=== PATIENT | female | born 1960 | race Caucasian/White ===

== ENCOUNTER 2017-11-04 05:45 | Inpatient (IN) | payer OTHER ==
[~2017-11-04] VITALS: Ht 172.7 cm; Wt 65.0 kg
[~2017-11-04 05:45] MED LIST: PERCT10 PO
[2017-11-04] MEDS ORDERED: RINGERS SOLUTION,LACTATED 1,000 ML IV ONE ×3 (06:00→06:01)
[2017-11-04] MEDS ORDERED: CeFAZolin 2 GM/DEXTROSE 50 ML IV ONE ×2 (06:00→06:02)
[2017-11-04] MEDS ORDERED: GELATIN SPONGE,ABSORBABLE 100 MM TP ONE (07:07)
[2017-11-04] MEDS ORDERED: PROPOFOL 1000 MG/ISO-OSM 100 ML IV ONE (07:07)
[2017-11-04] MEDS ORDERED: SODIUM CHLORIDE 0.9% 10 ML ONE (07:07)
[2017-11-04] MEDS ORDERED: BACITRACIN 50,000 UNITS/VIAL ONE (07:08)
[2017-11-04] MEDS ORDERED: THROMBIN, BOVINE 20000 UNITS/VIAL POWDER TP ONE (07:08)
[2017-11-04] MEDS ORDERED: HYDROmorphone 2 MG/ML SYRINGE IVP PRN ×2 (09:00)
[2017-11-04] MEDS ORDERED: FentaNYL CITRATE-PF 100 MCG/2 ML VIAL IVP PRN ×2 (09:00)
[2017-11-04] MEDS ORDERED: MIDAZOLAM HCL 2 MG/2 ML VIAL IVP PRN (09:00)
[2017-11-04] MEDS ORDERED: METOCLOPRAMIDE HCL 5 MG/ML 2 ML VIAL IVP PRN (09:00)
[2017-11-04] MEDS ORDERED: ONDANSETRON HCL 4 MG/2 ML VIAL IVP PRN (09:00)
[2017-11-04] MEDS ORDERED: ACETAMINOPHEN 1000 MG/ISO-OSM 100 ML IV ONE ×2 (09:00→10:56)
[2017-11-04] MEDS ORDERED: OxyCODONE HCL/ACETAMINOPHEN 5-325 MG TABLET PO PRN (10:30)
[2017-11-04] MEDS ORDERED: MAG HYDROX/AL HYDROX/SIMETH 30 ML SUSP UDCUP PO PRN (10:30)
[2017-11-04] MEDS ORDERED: ACETAMINOPHEN 325 MG TABLET PO PRN (10:30)
[2017-11-04] MEDS ORDERED: NALOXONE HCL 0.4 MG/ML VIAL IVP PRN (10:30)
[2017-11-04] MEDS ORDERED: MEPERIDINE HCL/PF 25 MG/0.5 ML AMP ONE (10:45)
[2017-11-04] MEDS ORDERED: ONDANSETRON HCL 4 MG/2 ML VIAL ONE (10:45)
[2017-11-04] MEDS ORDERED: HYDROmorphone 2 MG/ML SYRINGE ONE (10:49)
[2017-11-04] MEDS: HYDROmorphone 2 MG/ML SYRINGE IVP PRN ×4 (10:50→21:50)
[2017-11-04] MEDS ORDERED: SUCCINYLCHOLINE CHLORIDE 20 MG/ML 10 ML VIAL IVP ONE (12:00)
[2017-11-04] MEDS ORDERED: PHENYLEPHRINE HCL 10 MG/ML VIAL IVP ONE (12:00)
[2017-11-04] MEDS ORDERED: GLYCOPYRROLATE 0.2 MG/ML VIAL IM ONE (12:00)
[2017-11-04] MEDS ORDERED: ROCURONIUM BROMIDE 10 MG/ML 5 ML VIAL IVP ONE (12:00)
[2017-11-04] MEDS ORDERED: NEOSTIGMINE METHYLSULFATE 1 MG/ML 10 ML VIAL IVP ONE (12:00)
[2017-11-04] MEDS ORDERED: FentaNYL CITRATE-PF 250 MCG/5 ML VIAL IVP ONE (12:00)
[2017-11-04] MEDS ORDERED: MIDAZOLAM HCL 2 MG/2 ML VIAL IVP ONE (12:00)
[2017-11-04] MEDS ORDERED: PROPOFOL 1% 20 ML VIAL IVP ONE (12:00)
[2017-11-04 12:02] VITALS: BP 164/64
[2017-11-04] MEDS ORDERED: SODIUM CHLORIDE 0.9% 250 ML IV ONE (14:33)
[2017-11-04] MEDS: CeFAZolin 1 GM/DEXTROSE 50 ML IV SCH ×2 (15:08→21:51)
[2017-11-04] MEDS: ONDANSETRON HCL 4 MG/2 ML VIAL IVP PRN ×2 (15:10→20:08)
[2017-11-04 16:30] VITALS: BP 88/48
[2017-11-04 19:37] VITALS: BP 114/78
[2017-11-04] MEDS: OxyCODONE HCL/ACETAMINOPHEN 5-325 MG TABLET PO PRN (20:09)
[2017-11-04] MEDS: BENZOCAINE/MENTHOL LOZENGE PO PRN (20:09)
[2017-11-04] MEDS: DOCUSATE SODIUM 100 MG CAPSULE PO SCH (20:23)
[2017-11-04 23:30] VITALS: BP 116/74
[2017-11-05] MEDS: HYDROmorphone 2 MG/ML SYRINGE IVP PRN ×3 (02:32→20:57)
[2017-11-05 04:15] VITALS: BP 112/72
[2017-11-05] MEDS: BENZOCAINE/MENTHOL LOZENGE PO PRN (05:11)
[2017-11-05] MEDS: ONDANSETRON HCL 4 MG/2 ML VIAL IVP PRN ×2 (06:52→12:06)
[2017-11-05 07:37] VITALS: BP 90/57
[2017-11-05] MEDS ORDERED: RINGERS SOLUTION,LACTATED 1,000 ML IV ONE (08:00)
[2017-11-05] MEDS: DOCUSATE SODIUM 100 MG CAPSULE PO SCH ×2 (08:17→20:52)
[2017-11-05] MEDS ORDERED: BENZOCAINE/MENTHOL LOZENGE PO PRN ×2 (08:45→12:30)
[2017-11-05] MEDS ORDERED: CYCLOBENZAPRINE HCL 10 MG TABLET PO PRN (08:45)
[2017-11-05 09:21] LABS: BASOPHILS % (AUTO) 0.1 % (0.0-2.0); EOSINOPHILS % (AUTO) 0.7 % (1.0-6.0); HEMATOCRIT 36.5 % (36-46); HEMOGLOBIN 12.7 g/dL (12.0-16.0); MEAN CORPUSCULAR HEMOGLOBIN 31.9 pg (26.0-34.0); MEAN CORPUSCULAR HGB CONC 34.8 G/dL (31.0-37.0); MEAN CORPUSCULAR VOLUME 92 fL (80-100); MONOCYTES # (AUTO) 0.6 K/uL (0.1-1.0); MONOCYTES % (AUTO) 6.6 % (2.0-9.0); NEUTROPHILS # (AUTO) 7.2 K/uL (1.8-7.7); NEUTROPHILS % (AUTO) 81.6 % (40.0-70.0); PLATELET COUNT (AUTO) 257 K/uL (150-450); RED BLOOD CELL COUNT(AUTO) 3.98 MIL/uL (4.00-5.20); RED CELL DISTRIBUTION WIDTH 12.7 % (11.5-14.5)
[2017-11-05 09:45] LABS: ANION GAP 6 mmol/L (8-16); CALCIUM, TOTAL 7.9 mg/dL (8.8-10.5); CARBON DIOXIDE 24 mmol/L (22-29); CHLORIDE 100 mmol/L (98-107); CREATININE 0.82 mg/dL (0.60-1.30); GLOMERULAR FILTR. RATE CALC > 60 mL/min (>60); GLUCOSE,RANDOM 106 mg/dL (70-110); POTASSIUM 4.2 mmol/L (3.5-5.1); SODIUM SERUM 130 mmol/L (136-145); UREA NITROGEN, BLOOD 13 mg/dL (7-18)
[2017-11-05] MEDS: DEXAMETHASONE SOD PHOS 4 MG/ML VIAL IVP SCH ×3 (10:18→18:02)
[2017-11-05 11:06] VITALS: BP 100/62
[2017-11-05 15:46] VITALS: BP 106/67
[2017-11-05 19:00] VITALS: BP 122/67
[2017-11-05 23:00] VITALS: BP 99/62
[2017-11-06] MEDS: DEXAMETHASONE SOD PHOS 4 MG/ML VIAL IVP SCH ×2 (00:25→06:52)
[2017-11-06] MEDS: HYDROmorphone 2 MG/ML SYRINGE IVP PRN ×2 (01:24→07:06)
[2017-11-06 04:00] VITALS: BP 101/60
[2017-11-06 08:00] VITALS: BP 109/64
[2017-11-06] MEDS: DOCUSATE SODIUM 100 MG CAPSULE PO SCH (08:37)
[2017-11-06] MEDS: OxyCODONE HCL/ACETAMINOPHEN 5-325 MG TABLET PO PRN (11:30)
[2017-11-06 11:46] VITALS: BP 105/63
== END 2017-11-06 13:00 | disposition home or self-care (01) | DRG 473 ==
LOC: 4E 05:45
PROVIDERS: ADMIT Neurological Surgery; ATTEND Neurological Surgery
PROC: 0RB30ZZ Excision of Cervical Vertebral Disc, Open Approach (ICD-10-PCS; 2017-11-04)
PROC: 07T10ZZ Resection of Right Neck Lymphatic, Open Approach (ICD-10-PCS; 2017-11-04)
PROC: 4A11X4G Monitoring of Peripheral Nervous Electrical Activity, Intraoperative, External Approach (ICD-10-PCS; 2017-11-04)
PROC: 0RP104Z Removal of Internal Fixation Device from Cervical Vertebral Joint, Open Approach (ICD-10-PCS; 2017-11-04)
PROC: 0BH17EZ Insertion of Endotracheal Airway into Trachea, Via Natural or Artificial Opening (ICD-10-PCS; 2017-11-04)
PROC: 0RG20A0 Fusion of 2 or more Cervical Vertebral Joints with Interbody Fusion Device, Anterior Approach, Anterior Column, Open Approach (ICD-10-PCS; principal; 2017-11-04 08:25)
DX: M50.121 Cervical disc disorder at C4-C5 level with radiculopathy (principal); M50.122 Cervical disc disorder at C5-C6 level with radiculopathy; M53.2X2 Spinal instabilities, cervical region; R13.10 Dysphagia, unspecified; Z90.710 Acquired absence of both cervix and uterus
CPT/HCPCS: 86850; 86900; 86901; 87081; 88300; 97161; 97165; 97535; C1713; J0131; J0330; J0690; J1100; J1170; J2250; J2370; J2405; J2704; J3010; J3490; J7050; J7120